=== PATIENT | male | born 1985 | race African-American/Black ===

== ENCOUNTER 2017-03-18 13:50 | Emergency (ER) | payer SELFPAY ==
[2017-03-18] MEDS ORDERED: IBUPROFEN 800 MG TABLET PO ONE (14:53)
[2017-03-18] MEDS ORDERED: AMOXICILLIN TR/POT CLAVULANATE 500-125 MG TAB PO ONE (14:53)
--- NOTE | 2017-03-18 15:07 | ER Document Report ---
ED Animal Bite - General Chief Complaint: Dog Bite Stated Complaint: POSSIBLE DOG BITE Time Seen by Provider: 03/18/17 14:25 Mode of Arrival: Ambulatory Information source: Patient Notes: 31-year-old male presents to ED for complaint of dog bite to left hand. Has multiple small puncture wounds to the left hand. States that the dog was going after his dog and he got bit on the hand. He states his tetanus is up-to-date. He he states he has already contacted animal control and they are looking for the dog. He states the dog did not look sick but he does not know whose dog it is or if it is immunizations are up-to-date. TRAVEL OUTSIDE OF THE [place] IN LAST 30 DAYS: No - HPI Location of injury: LUE Severity of injury: Scratched, Bitten Onset: This afternoon Quality of pain: Sharp Pain Level: 2 Severity: Moderate Context of attack: Animals fighting Type of animal: Dog Appearance of animal: Appeared well Animal's immunizations: UTD Animal captured or known: No Animal control notified: Yes Animal control form completed: Yes - Related Data Allergies/Adverse Reactions: Pollen Allergy (Uncoded 03/18/17 14:14) Past Medical History - General Information source: Patient - Social History Smoking Status: Never Smoker Cigarette use (# per day): No Chew tobacco use (# tins/day): No Smoking Education Provided: No Frequency of alcohol use: None Drug Abuse: None Lives with: Family Family History: Arthritis, CAD, CVA, DM, Hyperlipidemia, Hypertension, Malignancy. denies: COPD, Thyroid Disfunction Patient has suicidal ideation: No Patient has homicidal ideation: No - Past Medical History Cardiac Medical History: Reports: None Pulmonary Medical History: Reports: Hx Asthma EENT Medical History: Reports: None Neurological Medical History: Reports: None, Hx Migraine Endocrine Medical History: Reports: None Renal/ Medical History: Reports: None Malignancy Medical History: Reports None GI Medical History: Reports: None Musculoskeltal Medical History: Reports None Skin Medical History: Reports None Psychiatric Medical History: Reports: None Traumatic Medical History: Reports: None Infectious Medical History: Reports: None Surgical Hx: Negative Past Surgical History: Reports: None - Immunizations Immunizations up to date: Yes Hx Diphtheria, Pertussis, Tetanus Vaccination: Yes - 2017 Review of Systems - Review of Systems Constitutional: No symptoms reported EENT: No symptoms reported Cardiovascular: No symptoms reported Respiratory: No symptoms reported Gastrointestinal: No symptoms reported Genitourinary: No symptoms reported Male Genitourinary: No symptoms reported Musculoskeletal: No symptoms reported Skin: Other - dog bites to left hand and fingers Hematologic/Lymphatic: No symptoms reported Neurological/Psychological: No symptoms reported Physical Exam - Vital signs Vitals: Temp Pulse Resp BP Pulse Ox 98.8 F 69 16 155/76 H 97 03/18/17 14:12 03/18/17 14:12 03/18/17 14:12 03/18/17 14:12 03/18/17 14:12 Interpretation: Normal - General General appearance: Appears well, Alert - HEENT Head: Normocephalic, Atraumatic Eyes: Normal Pupils: PERRL - Respiratory Respiratory status: No respiratory distress Chest status: Nontender Breath sounds: Normal Chest palpation: Normal - Cardiovascular Rhythm: Regular Heart sounds: Normal auscultation Murmur: No - Abdominal Inspection: Normal Distension: No distension Bowel sounds: Normal Tenderness: Nontender Organomegaly: No organomegaly - Back Back: Normal, Nontender - Extremities General upper extremity: Normal color, Normal temperature General lower extremity: Normal inspection, Nontender, Normal color, Normal ROM , Normal temperature, Normal weight bearing. No: Steve's sign Hand: Tender, Ecchymosis, Laceration, No evidence of human bite, No evidence of FB, Swelling, Other - Multiple dog bites to the left hand left thumb index finger posterior third MCP - Neurological Neuro grossly intact: Yes Cognition: Normal Orientation: AAOx4 Neva Coma Scale Eye Opening: Spontaneous Neva Coma Scale Verbal: Oriented Henry Coma Scale Motor: Obeys Commands Henry Coma Scale Total: 15 Speech: Normal Motor strength normal: LUE, RUE, LLE, RLE Sensory: Normal - Psychological Associated symptoms: Normal affect, Normal mood - Skin Skin Temperature: Warm Skin Moisture: Dry Skin Color: Normal Course - Re-evaluation Re-evalutation: 03/18/17 15:50 Pain was cleaned well with soap and water and bath rinsed well with water the bacitracin applied to all bite. Patient was treated with tetanus and immunoglobulin and vaccine. Rabies paper filled out and faxed to the animal control. Patient was set up with nurse visits for the future rabies shots. Patient was treated with Augmentin and discharged home with prescription for Augmentin. - Vital Signs Vital signs: Temp Pulse Resp BP Pulse Ox 98.8 F 69 16 155/76 H 97 03/18/17 14:12 03/18/17 14:12 03/18/17 14:12 03/18/17 14:12 03/18/17 14:12 Discharge - Discharge Clinical Impression: Dog bite of multiple sites of left hand and fingers Qualifiers: Encounter type: initial encounter Qualified Code(s): S61.452A - Open bite of left hand, initial encounter Condition: Stable Disposition: HOME, SELF-CARE Instructions: Family Physicians / Practices Additional Instructions: Animal Bites Animal bites are often heavily contaminated with bacteria. In spite of thorough cleansing and proper treatment, these wounds frequently become infected. Bite wounds of the hands are especially prone to complications. Bites are dressed, if possible. Large wounds may require suturing after internal cleansing. Because of infection risk, some large wounds must remain unstitched. Your doctor is trained to advise you on the best treatment for your bite. Call the doctor at once if the wound becomes red, swollen, warm, increasingly painful, or if it begins to drain. Danger signs also include red streaks up the involved extremity, swollen glands in the groin or under the arm , or fever and chills. The risk of rabies from domestic animals is very low. Bats, sick animals, and wild animals may expose you to rabies. The physician, or the health department, will inform you if you will need to receive the rabies vaccine. Augmentin Augmentin is a mixture of amoxicillin and clavulanate. Amoxicillin is a member of the penicillin family. It covers the germs likely to cause ear, bronchial, and urinary infections better than plain penicillin. The addition of clavulanate allows it to cover staph infections of the skin, as well as resistant cases of ear and sinus infections. Your physician has chosen Augmentin for you because of the special nature of your situation. Augmentin is best taken with meals. Nausea after taking the medication is rare, but can occur. Diarrhea can occur, particularly in small children. Vaginal yeast infections, and oral thrush in infants are also common. Contact your physician if these problems occur. Allergy to penicillins is common. If you have had an allergic reaction to any drug of the penicillin family, you should never take any other penicillin. Notify your doctor at once if you develop hives, shortness of breath, swelling, or faintness. Ibuprofen Ibuprofen is an excellent, safe drug for pain control. In addition, it has potent antiinflammatory effects which are beneficial, especially in the treatment of injuries, arthritis, or tendonitis. It's best to take ibuprofen with food. Persons with ulcer disease or allergy to aspirin should notify their physician of this before taking ibuprofen. Take the medication exactly as prescribed. Don't take additional doses unless instructed to do so by your doctor. If you develop wheezing, shortness of breath, hives, faintness, stomach pain, vomiting, or dark black stools, return for re-evaluation at once. NON-SUTURED LACERATION: Your laceration did not require suturing. Some lacerations cannot be sutured because of increased infection risk, while others simply don't need stitches because they are shallow or very short. Your injury should be protected while it heals. Usually complete healing takes 10 to 14 days. Keep the dressing clean and dry, and change it every day. If you notice increasing pain, redness, swelling, drainage, or tender lumps in the armpit or groin above the injury, infection may be present. You should call the doctor at once. SOAP CLEANSING: Gently wash the wound daily using a mild soap (like Ivory, Phisoderm, Neutrogena). Use warm water, rubbing gently until all debris, ooze, and crusting have been washed from the wound. Allow to dry briefly (about 10 minutes) after cleaning. Repeat this cleansing at least three times a day for the first two days and then once or twice a day. ANTIBIOTIC OINTMENT PROTECTION: Your wounds are such that dressing them is not practical or optional. After cleansing, you should apply a thin coating of antibiotic ointment ( Bacitracin, not Neosporin) to the wounds at least three times daily. This lessens infection risk, and may decrease the amount of scarring. Use a q-tip or dull butter knife, not your finger, to apply this ointment. Any debris or ooze which builds up in the ointment should be gently rubbed off with a sterile gauze pad. Harder crusting may need to be gently scrubbed off with a clean wash cloth with soap and warm water, perhaps applying a warm, wet wash cloth to the wound for ten minutes first. Development of redness, severe itching, or blistering may mean allergy to the ointment. See the doctor. FOLLOW-UP CARE: If you have been referred to a physician for follow-up care, call the physician s office for an appointment as you were instructed or within the next two days. If you experience worsening or a significant change in your symptoms, notify the physician immediately or return to the Emergency Department at any time for re-evaluation. You will need to follow-up with the ED on the days that are listed on your rabies vaccination sheet for day 3, 7, and 14. Today is day 0. Forms: Elevated Blood Pressure, Return to Work
[2017-03-18] MEDS ORDERED: RABIES IMMUNE GLOBULIN INJ/PF 300 UNIT/2 ML SDV IM ONE (15:30)
[2017-03-18] MEDS ORDERED: RABIES VACCINE (PCEC)/PF 2.5 UNIT/1 ML KIT IM ONE (15:30)
[2017-03-18 16:25] VITALS: BP 158/72
== END 2017-03-18 16:25 | disposition home or self-care (01) ==
LOC: ER 13:50
DX: S61.452A Open bite of left hand, initial encounter (principal); S61.251A Open bite of left index finger without damage to nail, initial encounter; S61.052A Open bite of left thumb without damage to nail, initial encounter; W54.0XXA Bitten by dog, initial encounter; Z23 Encounter for immunization
CPT/HCPCS: 90376; 90471; 90675; 96372; 99283

== ENCOUNTER 2018-10-15 08:48 | Emergency (ER) | payer SELFPAY ==
--- NOTE | 2018-10-15 09:30 | ER Document Report ---
ED Medical Screen (RME) - General Chief Complaint: Breathing Difficulty Stated Complaint: BODYACHE Time Seen by Provider: 10/15/18 09:17 Mode of Arrival: Ambulatory Information source: Patient Notes: Patient presents with multiple vague complaints, headache, fevers, body aches, photophobia, neck pain. Patient reports he believes all his symptoms are from allergies. Patient was taken straight to room 19 and a mask was placed on the patient. Exam: Patient calm, cooperative, in no acute distress. Lung sounds are clear to auscultation bilaterally. I have greeted and performed a rapid initial assessment of this patient. A comprehensive ED assessment and evaluation of the patient, analysis of test results and completion of the medical decision making process will be conducted by additional ED providers. Dictation of this chart was performed using voice recognition software; therefore, there may be some unintended grammatical errors. TRAVEL OUTSIDE OF THE [place] IN LAST 30 DAYS: No - Related Data Allergies/Adverse Reactions: Pollen Allergy (Uncoded 10/15/18 08:49) Past Medical History Pulmonary Medical History: Reports: Hx Asthma Neurological Medical History: Reports: Hx Migraine Renal/ Medical History: Denies: Hx Peritoneal Dialysis Physical Exam - Vital signs Vitals: Temp Pulse Resp BP Pulse Ox 100.9 F H 103 H 18 157/84 H 95 10/15/18 09:09 10/15/18 09:09 10/15/18 09:09 10/15/18 09:09 10/15/18 09:09 Course - Vital Signs Vital signs: Temp Pulse Resp BP Pulse Ox 100.9 F H 103 H 18 157/84 H 95 10/15/18 09:09 10/15/18 09:09 10/15/18 09:09 10/15/18 09:09 10/15/18 09:09
[2018-10-15] MEDS ORDERED: ACETAMINOPHEN 325 MG TABLET PO ONE (09:38)
[2018-10-15] MEDS ORDERED: KETOROLAC TROMETHAMINE INJ/PF 30 MG/1 ML SDV IM ONE (09:38)
[2018-10-15] MEDS ORDERED: NORMAL SALINE 1000 ML 1,000 ML IV ONE ×2 (09:39→11:16)
[2018-10-15] MEDS ORDERED: KETOROLAC TROMETHAMINE INJ/PF 30 MG/1 ML SDV IV ONE (09:50)
[2018-10-15] MEDS ORDERED: IPRATROPIUM/ALBUTEROL 0.5-2.5 MG/3 ML AMPUL NEB ONE (10:05)
--- NOTE | 2018-10-15 10:09 | ER Document Report ---
ED Fever - General Chief Complaint: Breathing Difficulty Stated Complaint: BODYACHE Time Seen by Provider: 10/15/18 09:17 Mode of Arrival: Ambulatory Information source: Patient TRAVEL OUTSIDE OF THE [place] IN LAST 30 DAYS: No - HPI Patient complains to provider of: Fever Onset: Yesterday Notes: Patient is here with complaints of not feeling well. He states that yesterday he developed some body aches, fever nasal congestion, wheezing, chest congestion and cough. States that he occasionally has some pain in his chest with cough only. He complains of body aches as well as headache, mild photophobia, and mild neck stiffness. He denies any blurred or loss vision. He denies any unilateral numbness, going, weakness. He is not on blood thinning medications. He denies IV drug use. He denies any abdominal pain. He had a few episodes of nausea vomiting yesterday, no vomiting today. No diarrhea. No dysuria or hematuria. No rash. No recent travel outside [place], no obvious known sick contacts. Pain is constant, achy, moderate. Seems to be worse with movement. Nothing in particular seems to make it better. He also states that his "brain feels like he is moving around when he moves his head ". - Related Data Allergies/Adverse Reactions: Pollen Allergy (Uncoded 10/15/18 08:49) Past Medical History - General Information source: Patient - Social History Smoking Status: Current Some Day Smoker Family History: Reviewed & Not Pertinent Patient has suicidal ideation: No Patient has homicidal ideation: No Pulmonary Medical History: Reports: Hx Asthma Neurological Medical History: Reports: Hx Migraine Renal/ Medical History: Denies: Hx Peritoneal Dialysis Review of Systems - Review of Systems -: Yes All other systems reviewed and negative Physical Exam - Vital signs Vitals: Temp Pulse Resp BP Pulse Ox 100.9 F H 103 H 18 157/84 H 95 10/15/18 09:09 10/15/18 09:09 10/15/18 09:09 10/15/18 09:09 10/15/18 09:09 - Notes Notes: GENERAL: alert, cooperative, nontoxic, no distress. HEAD: normocephalic, atraumatic EYES: conjunctiva pink without discharge, no external redness or swelling. Pupils equal round react light bilaterally. EARS: no external swelling, no external redness, no mastoid redness, swelling, tenderness. Ear canals are clear without swelling or drainage. TMs pearly lamas, no redness, no bulging, normal landmarks, no perforation. NOSE: atraumatic, no external swelling. clear rhinorrhea noted. MOUTH/THROAT: mucous membranes moist and pink, posterior pharynx without erythema, swelling, exudate. No trismus or drooling. NECK: soft, supple, mild neck stiffness noted with slight decreased range of motion. CHEST: no distress, lungs clear and equal throughout. Few scattered expiratory wheezes. No rales, rhonchi. CARDIAC: regular rate and rhythm, no murmur, normal capillary refill, normal pulses. No peripheral edema noted. ABDOMEN: Soft, round, nontender to palpation. No rebound tenderness or guarding. No obvious mass. BACK: full range of motion, no CVA tenderness. EXTREMITIES: full range of motion of all extremities. No redness, no swelling. NEURO: alert and oriented A&O3, no focal deficits, full range of motion of all extremities. Cranial nerves II through XII are grossly intact. Equal push and pull both upper and lower extremities. PYSCH: appropriate mood, affect. Patient is cooperative. SKIN: pink, warm, dry, no rash. Course - Re-evaluation Re-evalutation: 10/15/18 11:23 Reevaluation of the patient shows that he has improved somewhat. His heart rate has improved. His lab work is unremarkable with a normal white count, normal lactate, normal chemistries, urinalysis shows signs of dehydration with no signs of infection. Chest x-ray is negative. Influenza screen is negative. Head CT is negative. Patient still complaining of some mild headache as well as neck stiffness. Due to the fact that I am not finding an obvious source for his fever and symptoms, certainly have to consider meningitis and the differential diagnosis due to his fever, headache and neck stiffness. I discussed this with the patient. I discussed the risks and benefits of lumbar puncture to rule out meningitis, the patient is agreeable to have the procedure done. He has signed an informed consent. Is currently getting medicated with Reglan and Benadryl and will also be given another liter of normal saline. Lumbar puncture will be performed to rule out meningitis. 10/15/18 12:13 Patient states his headache is feeling better at this time. Lumbar puncture was performed. The patient tolerated this well. Currently awaiting CSF results and will continue to monitor. 10/15/18 14:01 Patient is nontoxic-appearing with stable vitals. Patient is here with complaints of body aches, headache, neck stiffness, fever started yesterday. He was noted to have some wheezing. The patient does have a history of asthma. Initial vital signs showed fever and tachycardia. Is not hypoxic. Blood pressure remained stable. Patient's workup is unremarkable. He has a normal white count, normal lactate, I do not believe that the patient is septic. Influenza screen is negative. Chemistries are unremarkable. Urinalysis shows no signs of infection. Chest x-ray is negative for acute pneumonia. Due to the patient's continued complaints of headache, neck stiffness and fever, a lumbar puncture was performed to rule out meningitis. CSF studies show no signs of infection. 10 RBCs in tube 1, 0 RBCs and tube 4, no concern for subarachnoid hemorrhage. This point patient most likely has a viral infection which is nonspecific. Due to his history of asthma and wheezing, I will place him on steroids with instructions to follow-up with his primary care doctor to next available appointment for reevaluation. Follow-up sooner forworsening pain, difficulty breathing or swelling, persistent vomiting, chest pain or shortness of breath, or for any further concerns. The patient's emergency department workup and current diagnosis were explained to the patient and or family. Follow-up instructions were provided. Medications if prescribed were discussed. Instructions for when to return to the emergency department including specific worrisome symptoms were discussed with the patient and/or family. - Vital Signs Vital signs: Temp Pulse Resp BP Pulse Ox 99.6 F 76 18 118/48 L 95 10/15/18 10:54 10/15/18 12:16 10/15/18 10:54 10/15/18 12:01 10/15/18 12:01 - Laboratory Result Diagrams: 10/15/18 09:41 10/15/18 09:41 Laboratory results interpreted by me: 10/15/18 10/15/18 09:41 09:41 Lymphocytes % 12.0 L Monocytes % 13.4 H Urine Ascorbic Acid 20 H - Diagnostic Test Radiology reviewed: Image reviewed, Reports reviewed - CT head negative, chest x-ray negative. Procedures - Lumbar Puncture Lumbar puncture Time completed: 12:00 Consent obtained: Yes Lumbar puncture pre-procedure: Sterile PPE donned, Chloraprep applied, Sterile drapes applied Patient position: Sitting Needle size: 20 Anesthetic type: 1% Lidocaine mL's of anesthetic: 5 Amount/type of drainage: For mL's of clear CSF Number of attempts: 1 Complications: No Notes: 10/15/18 12:13 Patient instructed to lie flat for 1 hour. We will continue to monitor. Discharge - Discharge Clinical Impression: Viral syndrome Asthma exacerbation Qualifiers: Asthma severity: mild Asthma persistence: unspecified Qualified Code(s): J45.901 - Unspecified asthma with (acute) exacerbation Condition: Stable Disposition: HOME, SELF-CARE Instructions: Viral Syndrome (OM), Asthma (OM) Additional Instructions: Take medications as prescribed. Drink plenty of fluids. Tylenol as needed for pain or fever. Follow-up with your doctor to next available appointment for reevaluation. Follow-up sooner for worsening symptoms, persistent vomiting, chest pain or shortness of breath, getting worse in any way, or for any further concerns. Prescriptions: Albuterol Sulfate [Proair HFA Inhalation Aerosol 8.5 gm MDI] 2 puff IH Q4H PRN #1 mdi PRN Reason: Naproxen [Naprosyn] 500 mg PO BID #20 tablet Prednisone [Deltasone 20 mg Tablet] 3 tab PO DAILY 5 Days tablet Forms: Elevated Blood Pressure, Smoking Cessation Education Referrals: [facility] [Provider Group] - Follow up as needed
[2018-10-15 10:16] LABS: ABSOLUTE BASOPHILS # (AUTO) 0.1 10^3/uL (0.0-0.2); ABSOLUTE EOSINOPHILS # (AUTO) 0.2 10^3/uL (0.0-0.6); ABSOLUTE LYMPHOCYTES (AUTO) 0.7 10^3/uL (0.5-4.7); ABSOLUTE MONOCYTES (AUTO) 0.8 10^3/uL (0.1-1.4); ABSOLUTE NEUT (AUTO) 4.2 10^3/uL (1.7-8.2); BASOPHILS % (AUTO) 1.2 % (0-2); EOSINOPHILS % (AUTO) 2.7 % (0-6); HEMATOCRIT 45.3 % (37.9-51.0); HEMOGLOBIN 15.7 g/dL (13.5-17.0); MEAN CORPUSCULAR HEMOGLOBIN 32.1 pg (27.0-33.4); MEAN CORPUSCULAR HGB CONC 34.6 g/dL (32.0-36.0); MEAN CORPUSCULAR VOLUME 93 fl (80-97); MONOCYTES % (AUTO) 13.4 % (3-13); PLATELET COUNT 202 10^3/uL (150-450); RED BLOOD COUNT 4.87 10^6/uL (4.35-5.55); SEGMENTED NEUTROPHILS % (AUTO) 70.7 % (42-78); TOTAL CELLS COUNTED % (AUTO) 100 %; WHITE BLOOD COUNT 5.9 10^3/uL (4.0-10.5)
[2018-10-15 10:32] LABS: ALANINE AMINOTRANSFERASE 35 U/L (21-72); ALBUMIN 4.1 g/dL (3.5-5.0); ALKALINE PHOSPHATASE 74 U/L (38-126); ANION GAP 8 (5-19); ASPARTATE AMINO TRANSFERASE 24 U/L (17-59); BILIRUBIN,DIRECT 0.2 mg/dL (0.0-0.4); BILIRUBIN,TOTAL 0.5 mg/dL (0.2-1.3); BLOOD UREA NITROGEN 12 mg/dL (7-20); CALCIUM 9.8 mg/dL (8.4-10.2); CARBON DIOXIDE 26 mmol/L (22-30); CHLORIDE 105 mmol/L (98-107); GLUCOSE 98 mg/dL (75-110); SODIUM 139.3 mmol/L (137-145); TOTAL PROTEIN 7.3 g/dL (6.3-8.2)
--- NOTE | 2018-10-15 10:32 | RADIOLOGY REPORT (SQ) ---
EXAM DESCRIPTION: CHEST 2 VIEWS COMPLETED DATE/TIME: 10/15/2018 10:12 am REASON FOR STUDY: fever COMPARISON: 2016. TECHNIQUE: Frontal and lateral radiographic views of the chest acquired. NUMBER OF VIEWS: Two view. LIMITATIONS: None. FINDINGS: LUNGS AND PLEURA: No opacities, masses or pneumothorax. No pleural effusion. MEDIASTINUM AND HILAR STRUCTURES: No masses or contour abnormalities. HEART AND VASCULAR STRUCTURES: Heart normal size. No evidence for failure. BONES: No acute findings. HARDWARE: None in the chest. OTHER: No other significant finding. IMPRESSION: NO SIGNIFICANT RADIOGRAPHIC FINDING IN THE CHEST. TECHNICAL DOCUMENTATION: JOB ID: [id number] All Rights Reserved Reading location - IP/workstation name: [email or web address]
[2018-10-15 10:39] LABS: APPEARANCE,URINE CLEAR; BILIRUBIN,URINE NEGATIVE (NEGATIVE); COLOR,URINE YELLOW; GLUCOSE, URINE NEGATIVE (NEGATIVE); KETONES,URINE NEGATIVE (NEGATIVE); LEUKOCYTE ESTERASE,URINE NEGATIVE (NEGATIVE); NITRITE,URINE NEGATIVE (NEGATIVE); PROTEIN,URINE NEGATIVE (NEGATIVE); URINE SPECIFIC GRAVITY 1.013; UROBILINOGEN,URINE NEGATIVE mg/dL (<2.0)
--- NOTE | 2018-10-15 10:45 | RADIOLOGY REPORT (SQ) ---
EXAM DESCRIPTION: CT HEAD WITHOUT COMPLETED DATE/TIME: 10/15/2018 10:26 am REASON FOR STUDY: headache, fever COMPARISON: None. TECHNIQUE: Axial images acquired through the brain without intravenous contrast. Images reviewed wi th bone, brain and subdural windows. Additional sagittal and coronal reconstructions were generated. Images stored on PACS. All CT scanners at this facility use dose modulation, iterative reconstruction, and/or weight based d osing when appropriate to reduce radiation dose to as low as reasonably achievable (ALARA). [facility]: Dose Right [facility]: CareDose [facility]: Dose Right [facility]: Teradose 4D [facility]: Smart SmartCells RADIATION DOSE: CT Rad equipment meets quality standard of care and radiation dose reduction techniq ues were employed. CTDIvol: 53.2 mGy. DLP: 1070 mGy-cm. mGy. LIMITATIONS: None. FINDINGS: VENTRICLES: Normal size and contour. CEREBRUM: No masses. No hemorrhage. No midline shift. No evidence for acute infarction. Normal gra y/white matter differentiation. No areas of low density in the white matter. CEREBELLUM: No masses. No hemorrhage. No alteration of density. No evidence for acute infarction. EXTRAAXIAL SPACES: No fluid collections. No masses. ORBITS AND GLOBE: No intra- or extraconal masses. Normal contour of globe without masses. CALVARIUM: No fracture. PARANASAL SINUSES: Mild mucosal thickening in the maxillary sinuses but no fluid. SOFT TISSUES: No mass or hematoma. OTHER: No other significant finding. IMPRESSION: 1. No acute intracranial abnormality. 2. Mild chronic maxillary sinus disease. EVIDENCE OF ACUTE STROKE: NO. COMMENT: Quality ID # [id number]: Final reports with documentation of one or more dose reduction techniques (e.g., Automated exposure control, adjustment of the mA and/or kV according to patient size, use of iterative reconstruction technique) TECHNICAL DOCUMENTATION: JOB ID: [id number] [employer]- All Rights Reserved Reading location - IP/workstation name: [email or web address]
[2018-10-15] MEDS ORDERED: DIPHENHYDRAMINE HCL 50 MG/ML VIAL IV ONE (10:56)
[2018-10-15] MEDS ORDERED: METOCLOPRAMIDE HCL INJ/PF 10 MG/2 ML SDV IV ONE (10:56)
[2018-10-15 11:06] LABS: A TYPE INFLUENZA AG NEGATIVE (NEGATIVE); B INFLUENZA AG NEGATIVE (NEGATIVE)
[2018-10-15] MEDS ORDERED: LIDOCAINE 1% INJ (10 MG/ML) 10 ML MDV INJ ONE (11:45)
[2018-10-15 12:40] LABS: GLUCOSE,CSF 61 mg/dL (40-70); PROTEIN,CSF 44 mg/dL (12-60)
[2018-10-15 12:57] LABS: COLOR ALL TUBES COLORLESS; CSF TUBE NUMBER 1
[2018-10-15 12:58] LABS: APPEARANCE ALL TUBES CLEAR; CSF TOTAL VOLUME 4.5 CC; VOLUME TUBE 1 1.5 CC
[2018-10-15 12:59] LABS: RED BLOOD CELL,CSF 10 /uL (0-10); WHITE BLOOD CELL,CSF 2 /uL (0-5)
[2018-10-15 13:17] LABS: APPEARANCE ALL TUBES CLEAR; COLOR ALL TUBES COLORLESS; CSF TOTAL VOLUME 4.5 CC; CSF TUBE NUMBER 4; VOLUME TUBE 1 1.5 CC
[2018-10-15 13:18] LABS: RED BLOOD CELL,CSF 0 /uL (0-10); WHITE BLOOD CELL,CSF 3 /uL (0-5)
[2018-10-15 14:34] VITALS: BP 156/93
== END 2018-10-15 14:27 | disposition home or self-care (01) ==
LOC: ER 08:48
DX: J45.901 Unspecified asthma with (acute) exacerbation (principal); B34.9 Viral infection, unspecified; R50.9 Fever, unspecified; R09.81 Nasal congestion; R09.89 Other specified symptoms and signs involving the circulatory and respiratory systems; R05 Cough; R07.9 Chest pain, unspecified; R51 Headache; H53.149 Visual discomfort, unspecified; M43.6 Torticollis; F17.200 Nicotine dependence, unspecified, uncomplicated; Z91.048 Other nonmedicinal substance allergy status
CPT/HCPCS: 94640; 99285; 96361; 96374; 96375; 36415; 87040; 87070; 87205; 85025; 89050; 82945; 84157; 80053; 81001; 83605; 87804; 71046; 70450; 62270; J1200; J1885; J2765; J7030; J7620

== ENCOUNTER 2018-12-22 04:58 | Emergency (ER) | payer SELFPAY ==
--- NOTE | 2018-12-22 06:39 | RADIOLOGY REPORT (SQ) ---
EXAM DESCRIPTION: US SCROTUM COMPLETED DATE/TME: 12/22/2018 00:00 CLINICAL HISTORY: 33 years Male, acute testicle pain Comparison: None. LIMITATIONS: None. 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 Cannot exclude extratesticular sarcoma. Recommend contrast MRI and/or Urology consultation. Small bilateral hydroceles. 4.8-cm right testis, 4.8-cm left testis, epididymides appear normal in size, shape, echotexture, and vascularity. No evidence of testicular mass. 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 Cannot exclude extratesticular sarcoma. Recommend contrast MRI and/or Urology consultation.
--- NOTE | 2018-12-22 08:54 | ER Document Report ---
ED General - General Chief Complaint: Groin Pain Stated Complaint: GROIN PAIN Time Seen by Provider: 12/22/18 06:45 Notes: 33-year male presents with left testicle pain and bilateral groin pain onset 3 weeks ago. He started feeling a mass 3 weeks ago but it went away that he felt that again 1 week ago. No nausea vomiting weight loss or back pain. No urologic provider. No history of STDs no penile discharge or pain. TRAVEL OUTSIDE OF THE [place] IN LAST 30 DAYS: No - Related Data Allergies/Adverse Reactions: Pollen Allergy (Uncoded 12/22/18 05:01) Past Medical History - General Cannot obtain history due to: Uncooperative - Social History Smoking Status: Never Smoker Family History: Reviewed & Not Pertinent Pulmonary Medical History: Reports: Hx Asthma Neurological Medical History: Reports: Hx Migraine Renal/ Medical History: Denies: Hx Peritoneal Dialysis Review of Systems - Review of Systems Notes: REVIEW OF SYSTEMS GEN: Denies fever, chills, weight loss ENT: Denies sore throat, nasal discharge, ear pain EYES: Denies blurry vision, eye pain, discharge CV: Denies chest pain, palpitations, edema RESP: Denies cough, shortness of breath, wheezing GI: Denies abdominal pain, nausea, vomiting, diarrhea MSK: Denies joint pain/swelling, edema, SKIN: Denies rash, skin lesions LYMPH: Denies swollen glands/lymph nodes NEURO: Denies headache, focal weakness or numbness, dizziness PSYCH: Denies depression, suicidal or homicidal ideation PHYSICAL EXAMINATION General: No acute distress, well-nourished Head: Atraumatic, normocephalic ENT: Mouth normal, oropharynx moist, no exudates or tonsillar enlargement Eyes: Conjunctiva normal, pupils equal, lids normal Neck: No JVD, supple, no guarding CVS: Normal rate, regular rhythm, no murmurs Resp: No resp distress, equal and normal breath sounds bilaterally U: Normal penis. Left hemiscrotum is firm and tender with apparent inability to mobilize the left scrotum from the left testicle with underlying mass Ext: No deformities, no edema, normal range of motion in upper and lower ext Back: No CVA or midline TTP Skin: No rash, warm Lymphatic: No lymphadeopathy noted Neuro: Awake, alert. Face symmetric. GCS 15. Physical Exam - Vital signs Vitals: Temp Pulse Resp BP Pulse Ox 98.1 F 86 16 158/94 H 95 12/22/18 05:03 12/22/18 05:03 12/22/18 05:03 12/22/18 05:03 12/22/18 05:03 Course - Re-evaluation Re-evalutation: 12/22/18 09:31 New onset scrotal mass with possible lymphadenopathy/spread. No evidence of acute infection. No evidence of sepsis. Discussed with Dr. Foy from urology at [facility] who recommended local follow-up for possible new onset testicular cancer. Patient was given name of several urologist in the area. Insert discharge I have discussed with the patient there likely diagnosis, aftercare plan, follow-up plans and my usual and customary return precautions. They verbalized understanding of this. - Vital Signs Vital signs: Temp Pulse Resp BP Pulse Ox 98.1 F 86 16 158/94 H 95 12/22/18 05:03 12/22/18 05:03 12/22/18 05:03 12/22/18 05:03 12/22/18 05:03 Discharge - Discharge Clinical Impression: Mass of left testicle Condition: Good Disposition: HOME, SELF-CARE Instructions: Testicular Pain ([facility]) Additional Instructions: Your ultrasound showed a testicular mass which could be cancer. It is very im portant that you follow-up with a urologist in the next 7 to 10 days for further evaluation and testing to avoid any further damage or morbidity. Referrals: MARYAM LIANG MD [JOVANI MERRITT] - Follow up in 1 week EVIN,SHAHAB Butler MD [NO LOCAL MD] - Follow up in 1 week
[2018-12-22 10:03] VITALS: BP 135/74
== END 2018-12-22 10:10 | disposition home or self-care (01) ==
LOC: ER 04:58
DX: N50.89 Other specified disorders of the male genital organs (principal); R10.30 Lower abdominal pain, unspecified; J45.909 Unspecified asthma, uncomplicated; Z91.048 Other nonmedicinal substance allergy status
CPT/HCPCS: 76870; 93976; 99284

== ENCOUNTER → 2019-10-05 | Outpatient (CLI) | payer SELFPAY ==
--- NOTE | 2019-10-05 13:07 | ER RDC ASSESSMENT REPORT ---
Intake - In the Last 14 days Have you traveled outside [place]?: No Have you been in close contact with someone CONFIRMED: No Worked in Healthcare?: No - Symptoms Subjective Fever([place] feverish): Yes Chills: Yes --How many day(s)?: Reports chills comes and goes Muscule Aches: Yes Runny Nose: No --How many day(s)?: Reports a postnasal drip Sore Throat: Yes Cough (New or worsening chronic cough): Yes --How many day(s)?: States cough is a dry cough Shortness of breath: No Nausea or Vomiting: Yes Headache: Yes --How many day(s)?: Reports headache started today Abdominal Pain: No Diarrhea(3 or more loose stools in last 24 hours): Yes --How many day(s)?: Reports diarrhea also started today - Do you have any of the following Chronic lung disease: Asthma or emphysema or COPD: Yes Chronic Lung Disease Comment: States has asthma since an Cystic Fibrosis: No Diabetes: No High Blood Pressure: Yes Cardiovascular Disease: Yes Chronic Kidney Disease: No Chronic Liver Disease: No Chronic blood disorder like Sickle Cell Disease: No Weak immune system due to disease or medication: No Neurologic condition that limits movement: No Developmental delay - Moderate to Severe: No Recent (within past 2 weeks) or current : No Morbid Obesity (>100 pounds over ideal weight): No Other Comment: Weight 220 pounds - Objective Temperature: 97.9 F Pulse Rate: 91 Respiratory Rate: 20 Blood Pressure: 138/100 O2 Sat by Pulse Oximetry: 94 Objective: Given above, testing performed: If Testing Performed: Test Specimen Type Sent to General - General Notes: Reports here for COVID testing. Reports symptoms started on Wednesday with headache and diarrhea starting today. Reports cough noted as dry and states has allergy like symptoms with post nasal drip vs a runny nose. [facility] does not have a PCP and last saw a PCP about 16 years ago. Control HTN with stress reduction. - Related Data Allergies/Adverse Reactions: Pollen Allergy (Uncoded 12/22/18 05:01) Past Medical History - Social History Smoking Status: Never Smoker Family History: Reviewed & Not Pertinent Pulmonary Medical History: Reports: Hx Asthma Neurological Medical History: Reports: Hx Migraine Renal/ Medical History: Denies: Hx Peritoneal Dialysis Psychiatric Medical History: Reports: Hx Depression Physical Exam - General In distress: None Notes: PHYSICAL EXAMINATION: GENERAL: Well-appearing and in no acute distress. HEAD: Atraumatic, normocephalic. EYES: sclera anicteric, conjunctiva are normal. ENT: nares patent. Moist mucous membranes. NECK: Normal range of motion, supple without lymphadenopathy LUNGS: CTAB and equal. No wheezes rales or rhonchi. HEART: Regular rate and rhythm without murmurs ABDOMEN: Soft, nontender, normal bowel sounds, no guarding. NEUROLOGICAL: Normal speech. PSYCH: Normal mood, normal affect. SKIN: Warm, Dry, normal turgor Diagnostic Results Laboratory Results: Patient informed of negative rapid strep and negative rapid flu results. Pending strep culture. Pending COVID results. Patient provided instruction about COVID to include: As a person under investigation for Covid 19, the [facility], division of public health advises you to adhere to the following guidance until your test results are reported to you. If your test result is positive, you will receive additional information from your provider and your local health department at that time. Remain at home until you are cleared by the health provider or public health authorities. Keep a log of visitors to your home, notify any visitors to your home of your isolation status. If you plan to move to a new address or leave the [facility], notify the local health department in your [facility]. Call your doctor or seek care if you have an urgent medical need. Before see [facility] care, call ahead to get instructions from the provider before arriving at the medical office clinic or hospital. Notify them that you are being tested for the virus that causes Covid 19 so that arrangements can be made, as necessary, to prevent transmission to others in the healthcare setting. Next, notify the local health department in your county. If a medical emergency arises and you need to call 911, inform the first responders that you are being tested for the virus that causes Covid 19. Next, notify the local health department in your county. Patient Education/Counseling Counseling/Education: Patient presents with upper respiratory symptoms worrisome for possible Covid 19. Patient does not have emergency worring symptoms such as difficulty breathing, shortness of breath, chest pain, pressure, confusion or cyanosis. Patient appears suitable for discharge. Patient's vital signs are stable and patient is nontoxic in appearance. Good return precautions have been discussed with patient, patient verbalized understanding and is agreeable with discharge plan of care at this time. RDC Discharge - Discharge Clinical Impression: COVID - 19 Screening Condition: Stable
[2019-10-05 13:12] VITALS: BP 138/100
[2019-10-05 13:13] LABS: A TYPE INFLUENZA AG NEGATIVE (NEGATIVE)
[2019-10-05 13:14] LABS: B INFLUENZA AG NEGATIVE (NEGATIVE)
== END ==
LOC: RDC 11:41
PROVIDERS: ATTEND Registered Nurse
DX: Z20.828 Contact with and (suspected) exposure to other viral communicable diseases (principal); J02.9 Acute pharyngitis, unspecified; R50.9 Fever, unspecified; I10 Essential (primary) hypertension; J45.909 Unspecified asthma, uncomplicated; R05 Cough; R51 Headache; R11.2 Nausea with vomiting, unspecified; M79.10 Myalgia, unspecified site; R19.7 Diarrhea, unspecified
CPT/HCPCS: 87070; 87635; 87804; 87880

== ENCOUNTER 2020-02-23 05:06 | Emergency (ER) | payer SELFPAY ==
--- NOTE | 2020-02-23 06:32 | RADIOLOGY REPORT (SQ) ---
Right ankle radiographs: 02/23/2020 5:30 AM CDT HISTORY: 34-year-old patient with right ankle pain . COMPARISON: None available TECHNIQUE: AP and lateral views of the right ankle were obtained. FINDINGS: There are no findings to suggest an acute fracture or subluxation within the right ankle. No abnormal soft tissue swelling is seen. No abnormal calcification, periarticular osteopenia, or gross erosions are seen. The joint spaces are preserved. IMPRESSION: There are no findings to suggest an acute fracture or subluxation within the right ankle.
[2020-02-23] MEDS ORDERED: HYDROCODONE/ACETAMINOPHEN 10-325 MG TABLET PO ONE (12:56)
[2020-02-23] MEDS ORDERED: ONDANSETRON 4 MG TAB.RAPDIS PO ONE (12:56)
--- NOTE | 2020-02-23 12:56 | ER Document Report ---
ED General - General Chief Complaint: Leg Pain Stated Complaint: RIGHT LEG PAIN AND SWELLING Mode of Arrival: Ambulatory Information source: Patient Notes: Patient is a 34-year-old male presenting to the emergency department chief complaint of right leg pain and swelling for the past 4 days. Patient denies travel history trauma history overexertion out of his norm. Patient denies cigarette use no changes in medications. Patient denies nausea vomiting diarrhea fevers chills cough or cold type symptoms. Patient states that it began and has progressively increased in pain. Patient states that he has tried to rest and take Motrin however this has not alleviated the symptoms. TRAVEL OUTSIDE OF THE [place] IN LAST 30 DAYS: No - HPI Onset: Other - 4 weeks worse today Onset/Duration: Gradual, Worse Quality of pain: Throbbing Severity: Moderate Pain Level: 3 Associated symptoms: None Exacerbated by: Standing, Movement, Walking Relieved by: Denies Similar symptoms previously: No Recently seen / treated by doctor: No - Related Data Allergies/Adverse Reactions: Pollen Allergy (Uncoded 12/22/18 05:01) Past Medical History - General Information source: Patient - Social History Smoking Status: Never Smoker Chew tobacco use (# tins/day): No Frequency of alcohol use: None Drug Abuse: None Lives with: Family Family History: CAD, DM, Hyperlipidemia, Hypertension Patient has suicidal ideation: No Patient has homicidal ideation: No - Past Medical History Cardiac Medical History: Reports: Hx Hypertension Pulmonary Medical History: Reports: Hx Asthma Neurological Medical History: Reports: Hx Migraine Renal/ Medical History: Denies: Hx Peritoneal Dialysis Psychiatric Medical History: Reports: Hx Depression Review of Systems - Review of Systems Notes: REVIEW OF SYSTEMS: CONSTITUTIONAL : Denies fever, chills, or sweats. Denies recent illness. EENT: Denies eye, ear, throat, or mouth pain or symptoms. Denies nasal or sinus congestion. CARDIOVASCULAR: Denies chest pain. RESPIRATORY: Denies cough, cold, or chest congestion. Denies shortness of breath, difficulty breathing, or wheezing. GASTROINTESTINAL: Denies abdominal pain. Denies nausea, vomiting, or diarrhea. Denies constipation. GENITOURINARY: Denies difficulty urinating, painful urination, burning, frequency, or blood in urine. MUSCULOSKELETAL: Per HPI SKIN: Denies rash or skin lesions. HEMATOLOGIC : Denies easy bruising or bleeding. NEUROLOGICAL: Denies altered mental status or loss of consciousness. Denies headache. Denies weakness or paralysis or loss of use of either side. Denies problems with gait or speech. Denies sensory or motor loss. PSYCHIATRIC: Denies suicidal or homicidal ideations 10 Systems are negative unless otherwise specified above Physical Exam - Vital signs Vitals: Temp Pulse Resp BP Pulse Ox 98.2 F 63 12 152/80 H 98 02/23/20 05:12 02/23/20 05:12 02/23/20 05:12 02/23/20 05:12 02/23/20 05:12 - Notes Notes: PHYSICAL EXAMINATION: GENERAL: Well-appearing, well-nourished and in no acute distress. HEAD: Atraumatic, normocephalic. EYES: Pupils equal round and reactive to light, extraocular movements intact, sclera anicteric, conjunctiva are normal. ENT: nares patent, oropharynx clear without exudates. Moist mucous membranes. NECK: Normal range of motion, supple without lymphadenopathy, no appreciable JVD LUNGS: Lungs clear to auscultation bilaterally and equal. No wheezes rales or rhonchi. HEART: Regular rate and rhythm without murmurs ABDOMEN: Soft, nontender, normal bowel sounds. No guarding, no rebound. No masses appreciated. EXTREMITIES: Patient is exquisitely tender to the right calf any palpation or movement elicits a pain response. Dorsalis pedis pulse is present distally the right foot is swollen and tender. Remainder of extremities 2+ pulses full range of motion. NEUROLOGICAL: No focal neurological deficits. Moves all extremities spontaneously and on command. SKIN: Warm, Dry, and intact. Normal turgor, no rashes or lesions noted. Course - Re-evaluation Re-evalutation: 02/23/20 14:38 X-ray demonstrated no signs of pathology to the ankle but because of the patient's exquisite tenderness I did obtain a Doppler to the right lower extremity which has been found to be nondiagnostic. I discussed the negative DVT findings with the patient he is agreeable with discharge home. Patient will be given prescription for Flexeril and Vicodin for the next couple of days and instructed to rest ice and elevate the extremity and follow-up with his primary care provider as needed or return to the emergency department for worsening symptoms. - Vital Signs Vital signs: Temp Pulse Resp BP Pulse Ox 98.2 F 60 16 138/86 H 100 02/23/20 09:58 02/23/20 14:23 02/23/20 14:23 02/23/20 14:23 02/23/20 14:23 - Diagnostic Test Radiology reviewed: Reports reviewed Discharge - Discharge Clinical Impression: Right calf pain, Muscle strain Condition: Stable Disposition: HOME, SELF-CARE Additional Instructions: Muscle Strain You have strained a muscle -- torn the fibers within the muscle. This often occurs with strenuous exertion, or during an injury that suddenly stretches the muscle. The seriousness of a strain varies. Some strains heal within days, others cause problems for months. X-rays cannot show a muscle strain. X-rays are taken only if symptoms [place] ggest that a fracture could be present. The usual treatment of a muscle strain is rest and ice packs. Sometimes, a sling, splint, or crutches may be necessary to rest the muscle. The muscle can be used again once pain subsides. Severe strains require a special exercise and stretching program to prevent permanent stiffness and disability. Your doctor will advise you if this will be necessary. Call the doctor immediately if pain or swelling becomes severe, or if numbness or discoloration develop. Prescriptions: Hydrocodone/Acetaminophen [Vicodin Hp 10-300 mg Tablet] 1 each PO Q6HP PRN #10 tablet PRN Reason: Cyclobenzaprine HCl [Flexeril 10 mg Tablet] 10 mg PO TIDP PRN #15 tab PRN Reason: Forms: Return to Work
--- NOTE | 2020-02-23 14:14 | RADIOLOGY REPORT (SQ) ---
EXAM DESCRIPTION: VENOUS UNILATERAL LOWER IMAGES COMPLETED DATE/TIME: 02/23/2020 1:50 pm REASON FOR STUDY: RLE PAIN, SWELLING COMPARISON: None. TECHNIQUE: Dynamic and static lamas scale and color images acquired of the right leg venous system. S elected spectral images acquired with additional compression and augmentation maneuvers. The contrala teral common femoral vein and saphenofemoral junction were also imaged. Images stored on PACS. LIMITATIONS: None. FINDINGS: COMMON FEMORAL: Normal phasicity, compression and augmentation. No visualized echogenic ma terial on lamas scale. No defects on color images. FEMORAL: Normal compression and augmentation. No visualized echogenic material on lamas scale. No defe cts on color images. POPLITEAL: Normal compression, augmentation. No visualized echogenic material on lamas scale. No defec ts on color images. CALF VESSELS: Normal compression, augmentation. No visualized echogenic material on lamas scale. No de fects on color images. GSV and SSV: Normal compression, augmentation. No visualized echogenic material on lamas scale. No def ects on color images. ANY DEEP VENOUS INSUFFICIENCY: Not evaluated. ANY EVIDENCE OF POPLITEAL CYST: No. OTHER: No other significant finding. CONTRALATERAL COMMON FEMORAL VEIN AND SAPHENOFEMORAL JUNCTION: Normal phasicity, compression and augmentation. No visualized echogenic material on lamas scale. No de fects on color images. IMPRESSION: NO EVIDENCE OF DVT OR SVT IN THE RIGHT LEG. TECHNICAL DOCUMENTATION: JOB ID: [id number] [employer]- All Rights Reserved Reading location - IP/workstation name: [email or web address]
[2020-02-23 14:24] VITALS: BP 138/86
== END 2020-02-23 14:23 | disposition home or self-care (01) ==
LOC: ER 05:06
DX: M79.661 Pain in right lower leg (principal); T14.8XXA Other injury of unspecified body region, initial encounter; X58.XXXA Exposure to other specified factors, initial encounter; M79.89 Other specified soft tissue disorders; I10 Essential (primary) hypertension; J45.909 Unspecified asthma, uncomplicated; Z91.048 Other nonmedicinal substance allergy status
CPT/HCPCS: 99284; 93971; 73600; S0119